=== PATIENT | male | born 1975 | race Two or more races ===

== ENCOUNTER 2024-03-07 08:00 | Day surgery (SDC) | payer BC, SELFPAY ==
[2024-03-06 14:19] VITALS: BMI 34.5
[2024-03-07] VITALS (14 sets, daily range): BP systolic 107–154; BP diastolic 73–102; PULSE 62–74; RESP 10–20; TEMP 36.4; O2SAT 96–100
[2024-03-07] MEDS: ONDANSETRON INJ 2 MG/ML INJ 2 ML 4 MG IV (10:14)
[2024-03-07] MEDS: DiphenhydrAMINE INJ 50 MG/ML VIAL 25 MG IV (10:15)
[2024-03-07] MEDS: SODIUM CHLORIDE 0.9% 100 ML IV (10:15)
[2024-03-07] MEDS: fentaNYL CIT INJ 50 mCg/ML AMP 2ML (ASD USE ONLY) IV (10:15)
[2024-03-07] MEDS: MIDAZOLAM INJ 1 MG/ML VIAL 2 ML (ASD USE ONLY) 2 MG IV (10:16)
--- NOTE | 2024-03-07 10:27 | SUR.PHASEII ---
1027 patient is awake ,alert, breathing unlabored, s/p colonoscopy by dr Amaro. Report received from Rizwana MORA
--- NOTE | 2024-03-07 11:10 | SUR.PHASEII ---
1110 patient is awake, alert, breathing unlabored, able to ambulate to bathroom and pass gas, able to drink water with no nausea or vomiting, meets discharge criteria, discharge instructions given to alexx and Vashti, patient discharged home in wheelchair with all belongings.
== END 2024-03-07 11:10 | disposition home or self-care (01) ==
PROVIDERS: PCP Internal Medicine; Referring Provider Specialist; Visit Provider Specialist
PROC: 0DBE8ZX Excision of Large Intestine, Via Natural or Artificial Opening Endoscopic, Diagnostic (ICD-10-PCS; CPT 45380; principal; 2024-03-07 09:30)
DX: K64.8 Other hemorrhoids (principal); K64.4 Residual hemorrhoidal skin tags
CPT/HCPCS: 45398; A4649; J1200; J2250; J2405; J3010; J7050